=== PATIENT | male | born 1960 | race Caucasian/White ===

== ENCOUNTER 2019-08-26 17:32 | Inpatient (IN) | payer MEDICAID, SELFPAY ==
--- NOTE | ~2019-08-26 | US_ITS ---
EXAMINATION: US renal BI EXAM DATE: 08/28/2019 10:06 INDICATION: Acute renal failure. TECHNIQUE: Multiple grayscale and Doppler images of the kidneys were obtained (by a technologist who performed the scan) and subsequently reviewed. Comparison is made to prior examination from 4. FINDINGS: Right kidney: There is normal contour and echogenicity. It measures 11.0 x 5.5 x 5.7 centimeters. T here are no focal renal lesions identified. There is no hydronephrosis. Left kidney: There is normal contour and echogenicity. It measures 11.4 x 6.4 x 5.9 centimeters. Th ere are no focal renal lesions identified. There is no hydronephrosis. Bladder unremarkable. IMPRESSION: 1. Sonographically unremarkable kidneys. Reviewed, dictated and finalized at location B. GER OF APPLICATION DEVELOPMENT
--- NOTE | ~2019-08-26 | XR_ITS ---
EXAMINATION: XR abdomen NG/feed tube insert DATE: 08/28/2019 14:12 INDICATION: Nasogastric tube placement. TECHNIQUE: An upright view of the abdomen was obtained. COMPARISON: CT abdomen and pelvis 08/28/2019 FINDINGS: The lower abdomen is excluded. The nasogastric tube tip is in the stomach with proximal aisha e port in the distal esophagus. IMPRESSION: 1. Nasogastric tube tip in the stomach with proximal side port in the distal esophagus. Advancement 3 cm is recommended. Reviewed, dictated and finalized at location A. ENTIVE MEDICINE SPECIALIST IMPRESSION: 1. Nasogastric tube tip in the stomach with proximal side port in the distal es ophagus. Advancement 3 cm is recommended.
--- NOTE | ~2019-08-26 | XR_ITS ---
EXAMINATION: XR abdomen NG/feed tube rechec DATE: 08/30/2019 09:52 INDICATION: Nasogastric tube placement. TECHNIQUE: An upright view of the abdomen was obtained. COMPARISON: CT abdomen and pelvis 08/28/2019 FINDINGS: The lower abdomen is excluded. There are no dilated loops of bowel. The nasogastric tube ti p is in the stomach with proximal side port in the distal esophagus. IMPRESSION: 1. Nasogastric tube tip in the stomach with proximal side port in the distal esophagus. Advancement 8 cm is recommended. Reviewed, dictated and finalized at location A. N DIR IMPRESSION: 1. Nasogastric tube tip in the stomach with proximal side port in the distal es ophagus. Advancement 8 cm is recommended.
--- NOTE | ~2019-08-26 | XR_ITS ---
EXAMINATION: XR abdomen NG/feed tube rechec DATE: 08/30/2019 10:42 INDICATION: Nasogastric tube placement. TECHNIQUE: An upright view of the abdomen was obtained. COMPARISON: Abdomen radiograph at 9:47 AM FINDINGS: There are no dilated loops of bowel. The nasogastric tube tip is in the stomach. IMPRESSION: 1. Nasogastric tube tip in the stomach. Reviewed, dictated and finalized at location A. ATING ROOM AIDE
--- NOTE | ~2019-08-26 | XR_ITS ---
EXAMINATION: XR chest 1V portable INDICATION: Hypotension TECHNIQUE: Portable AP chest at 1825 hours COMPARISON: 04/22/2014 FINDINGS: The lungs are free of acute opacities. There is no pleural effusion or pneumothorax. Stable cardiomegaly is noted. IMPRESSION: 1. No acute cardiopulmonary abnormality. 2. Stable cardiomegaly. Reviewed, dictated and finalized at location A. OUNDING AND FINISHING SUPERVISOR
--- NOTE | ~2019-08-26 | CT_ITS ---
EXAMINATION: CT abdomen pelvis wo con DATE: 08/28/2019 10:05 INDICATION: Nausea and vomiting TECHNIQUE: Computed tomography (CT) of the abdomen and pelvis was performed without intravenous contr ast. Automated exposure control and iterative reconstruction technique were employed. The dose-length product was 1184.22 mGy-cm. COMPARISON: MRI dated 04/29/2014 FINDINGS: Lung bases are clear. Heart size is normal. No pericardial or pleural effusion. Diffuse hepatic steat osis. The gallbladder, spleen, right adrenal gland and kidney are normal. There is wall thickening at the distal esophagus with mild segment distal paraesophageal stranding. B owel obstruction at the level of the ligament of Treitz with dilated fluid-filled stomach and duodenu m, the latter measuring up to 8.2 cm in diameter. Both the small bowel at the site of obstruction in the tail of the pancreas are contiguous with the intervening spiculated mass which measures approxima tely 5.4 x 5.0 x 5.2 cm which is concerning for malignancy. Within the mass there is a small tubular fluid attenuation extending to a more focal 2.4 cm cystic lesion at the cephalad aspect of the spicul ated mass potentially representing a dilated duct and sidebranch or chronic pseudocyst. The mass also extends to contact the left adrenal gland and anterior interpolar region of the left kidney. 12 mm c yst at the lower pole of the left kidney. There is mild left perinephric stranding. Mildly prominent 12 x 9 mm left gastric lymph node which co uld be reactive or metastatic. No other pathologically enlarged abdominal or pelvic lymphadenopathy. The more distal small bowel is normal. There are couple colonic diverticula without adjacent inflamma tory change to suggest diverticulitis. Appendix is normal. Bladder and prostate are normal. No free i ntraperitoneal gas or fluid. Amount of fluid/stranding within a moderate-sized fat-containing umbilic al hernia. Moderate lower lumbar spondylosis. Likely physiologic mild anterior wedging at T10-L1. IMPRESSION: 1. 5.4 x 5.0 x 5.2 cm spiculated mass at the tail of the pancreas with differential including pancrea tic cancer, inflammatory pseudomass related to prior pancreatitis or combination thereof. This result s in a high-grade obstruction of the duodenum at the level of the ligament of Treitz. 2. Distal esophageal wall thickening with surrounding inflammatory stranding suggesting reflux esopha gitis. 3. Mildly prominent 12 x 9 mm left gastric lymph node which could be reactive or metastatic. 4. Moderate-sized fat-containing umbilical hernia. Reviewed, dictated and finalized at location A. STITCH TUNNEL ELASTIC OPERATOR IMPRESSION: 1. 5.4 x 5.0 x 5.2 cm spiculated mass at the tail of the pancreas with differen tial including pancreatic cancer, inflammatory pseudomass related to prior panc reatitis or combination thereof. This results in a high-grade obstruction of th e duodenum at the level of the ligament of Treitz. 2. Distal esophageal wall thickening with surrounding inflammatory stranding davis ggesting reflux esophagitis. 3. Mildly prominent 12 x 9 mm left gastric lymph node which could be reactive o r metastatic. 4. Moderate-sized fat-containing umbilical hernia.
[2019-08-26 17:40] VITALS: BP 81/56; PULSE 84; RESP 12; TEMP 36.8; O2SAT 97
--- NOTE | 2019-08-26 17:54 | ED.GENADULT ---
HPI - General Adult General Chief complaint: Nausea/Vomiting/Diarrhea Stated complaint: low bp Time Seen by Provider: 08/26/19 17:54 Source: patient and family Mode of arrival: ambulatory Limitations: no limitations History of Present Illness HPI narrative: A 58 y/o male pt presents to the ED, with c/o low BP and N/V x 4 days. Per spouse at bedside, pt's Sx began with N/V/D, estimating 4 episodes of emesis a day, but the diarrhea has subsided. Pt states that he is not able to keep food down, and notes generalized weakness, chills, body aches, acid reflux and dizziness. He denies having a fever, ABD pain, cough, or rhinorrhea. He notes that he has a Hx of HTN that he is on medication for, but he discontinued his medication x 2 days ago when he noticed his blood pressure dropping. Pt denies being around anyone with similar Sx. He denies a PMHx of DM, HLD, OK, TIA or any thyroid problems. Pt also denies taking any anticoagulation therapy. Pt's BP in the ED bed is 86/58. MD complaint: N/V Onset (ago): day(s) (4) Exacerbating factors: eating Associated symptoms: nausea/vomiting, weakness (generalized) and other (chills, body aches, dizziness, acid reflux, unable to keep down food) Related Data Home Medications Medication Instructions Recorded Confirmed albuterol sulfate 90 mcg/actuation 2 inhalation INHALATION Q4-6H PRN 06/07/19 breath activated powder inhaler amlodipine 10 mg tablet 10 mg PO DAILY 06/07/19 aspirin 81 mg tablet,delayed 81 mg PO DAILY 06/07/19 release atorvastatin 40 mg tablet 40 mg PO DAILY 06/07/19 carvedilol 25 mg tablet 25 mg PO Q12H 06/07/19 fluticasone 100 mcg-salmeterol 50 1 puff INHALATION Q12H 06/07/19 mcg/dose blistr powdr for inhalation furosemide 20 mg tablet 20 mg PO QAM 06/07/19 lisinopril 40 mg tablet 40 mg PO DAILY 06/07/19 Allergies Allergy/AdvReac Type Severity Reaction Status Date / Time iodine Allergy Unknown Unknown Verified 08/26/19 16:14 prednisone AdvReac Mild Nausea and Verified 08/26/19 16:14 Vomiting Review of Systems Review of Systems: All systems reviewed & are unremarkable except as noted in HPI and below Constitutional: Constitutional: Reports body ache(s), Reports chills, Denies fever(s) and Reports weakness (generalized) Respiratory: Respiratory: Denies cough and Denies other (rhinorrhea) Gastrointestinal: Gastrointestinal: Denies abdominal pain, Reports diarrhea (subsided), Reports nausea, Reports vomiting and Reports other (acid reflux, unable to keep food down) Neurologic: Reports dizziness PMFSH Social History Social History Smoking status: Light tobacco smoker Tobacco type: cigarettes Second hand tobacco smoke exposure: Yes Alcohol intake: current Substance use: never Substance use type: does not use Exam Narrative: Exam Narrative: General appearance: Well-developed, well-nourished Skin: Normal color Head: Normocephalic, nontraumatic Eyes: Clear conjunctiva ENT: Oropharynx normal, ears normal, nose normal Neck: Supple, nontender Chest and respiratory: Airway patent, no respiratory distress, no accessory muscle use Heart: Regular rate/rhythm Abdomen: Soft, nontender, no organomegaly, quiet bowel sounds Vascular: Normal peripheral pulses, normal capillary refill. Musculoskeletal: Normal range of motion, nontender back Neurologic: Alert and oriented ?3, SUGAR DRIER is normal as tested, no gross motor deficit Course Course Emergency Course: Improving Consultations Consultation #1: Discussed case with Dr. Santana, trail maintenance worker. Agrees to consult. Date: 08/26/19 Time: 19:05 Consultation #2: Discussed shreya
[2019-08-26] MEDS: SODIUM CHLORIDE 0.9% IV 1,000 ML 999 ML IV CONT (18:00)
[2019-08-26] MEDS: SODIUM CHLORIDE 0.9% IV 1,000 ML 999 ML (18:00)
--- NOTE | 2019-08-26 18:01 | ECG_ITS ---
Measurements Intervals [place] Rate: 70 P: -20 SD: 182 QRS: 32 QRSD: 104 T: -78 QT: 413 QTc: 449 Interpretive Statements SINUS RHYTHM ATRIAL PREMATURE COMPLEX CANNOT RULE OUT SEPTAL INFARCT, AGE INDETERMINATE BORDERLINE ST-T WAVE ABNORMALITY- DIFFUSE LEADS BASELINE ARTIFACT- I, AVR, AVL ABNORMAL ECG Electronically Signed On 08-26-2019 19:45:06 HOME HEALTH ATTENDANT by Kenji Rahman D.O.
[2019-08-26 18:24] VITALS: BP 96/51; PULSE 85; RESP 14; O2SAT 100
[2019-08-26 18:31] LABS: Basophils Absolute Auto 0.1 K/mm3 (0.0-0.1); Basophils Percent Auto 0.6 % (0.2-1.2); Eosinophils Absolute Auto 0.2 K/mm3 (0-0.3); Eosinophils Percent Auto 1.6 % (0-4.4); Hematocrit 48.9 % (42.0-52.0); Hemoglobin 16.9 g/dL (14.0-18.0); Immature Granulocyte Absolute 0.08 K/mm3 (0.00-0.031); Immature Granulocyte Percent A 0.6 % (0-0.5); Lymphocytes Absolute Auto 3.94 K/mm3 (0.9-3.2); Lymphocytes Percent Auto 27.4 % (18.3-44.2); Mean Corpuscular HGB Conc 34.6 g/dl (32-36); Mean Corpuscular Hemoglobin 31.7 pg (26-34); Mean Corpuscular Volume 91.7 fl (80-100); Monocytes Absolute Auto 1.6 K/mm3 (0.1-0.6); Monocytes Percent Auto 11.1 % (2.6-8.5); Neutrophils Absolute Auto 8.5 K/mm3 (1.3-6.7); Neutrophils Percent Auto 58.7 % (45.5-73.1); Platelet Count Result 235 k/mm3 (150-375); Red Blood Count 5.33 M/mm3 (4.6-6.20); White Blood Count 14.4 K/mm3 (4.5-10.0)
[2019-08-26 18:44] LABS: Lactic Acid Reflex 1.9 mmol/L (0.7-2.1)
[2019-08-26 18:46] LABS: Alanine Aminotransferase 69 U/L (4-50); Albumin Level 5.1 g/dL (3.5-5.1); Alkaline Phosphatase 155 U/L (38-126); Aspartate Amino Transferase 45 U/L (17-59); Bilirubin,Total 1.3 mg/dL (0.2-1.3); Blood Urea Nitrogen 82 mg/dL (9-20); CRP 0.8 mg/dL (<1.0); Calcium 9.6 mg/dL (8.4-10.2); Carbon Dioxide 32 mmol/L (22-30); Chloride 71 mmol/L (98-107); Estimated CRCL calculation 9 ml/min; Estimated Glomerular Filt Rate 5; Glucose 115 mg/dL (75-110); Potassium 4.5 mmol/L (3.4-5.0); Sodium 130 mmol/L (137-145)
[2019-08-26 18:51] VITALS: BP 116/80; PULSE 77; RESP 16; O2SAT 98
[2019-08-26 19:12] LABS: Add Urine Microscopic? YES; Appearance Urine Cloudy (Clear); Bacteria Urine Trace /hpf; Bilirubin Urine 1+ (Negative); Blood Urine Negative (Negative); Color Urine Amber (Yellow); Glucose Urine UA Negative (Negative); Hyaline Casts Urine 50+ /lpf; Ketones Urine Trace mg/dL (Negative); Leukocyte Esterase Ur Trace LEU/UL (Negative); Mucus Urine Heavy /lpf; Nitrate Urine Negative (Negative); Protein Urine 2+ mg/dL (Negative); Squamous Epithelial Cell Urine Many /hpf (Few); WBC Clumps Urine Present /HPF
[2019-08-26 19:28] LABS: Prothrombin Time 12.7 Seconds (11.1-14.7)
[2019-08-26 19:29] LABS: Partial Thromboplastin Time 27.1 SECONDS (22.3-36.8)
[2019-08-26 19:45] VITALS: BP 111/55; PULSE 90; RESP 11; O2SAT 98
[2019-08-26] MEDS: ONDANSETRON INJ 4 MG/2 ML VIAL IV PUSH (20:16)
[2019-08-26 20:18] VITALS: BP 92/65; PULSE 93; RESP 16; O2SAT 96
[2019-08-26 20:40] VITALS: BP 95/48; PULSE 93; RESP 20; TEMP 36.7; O2SAT 95; BMI 33.1
[2019-08-26] MEDS: LACTATED RINGERS 1,000 ML 150 ML IV CONT (20:46)
--- NOTE | 2019-08-26 20:57 | ADMGEN ---
This patient, Kevin Mccarty, was admitted to Medical Room 241-. Patient/family oriented to hospital policies and general routines including ID bracelet, bed and alarms, visiting hours, pain management, procedures, bathroom and other care routines, personal items, smoking policy, room service/diet, and visiting hours. Valuables list has been completed. Information on how to activate the Rapid Response Team has been discussed. Patient/Family are encouraged to report perceived risks to care and to ask questions if they do not understand what they are told or what they should do.
[2019-08-27] VITALS (8 sets, daily range): BP systolic 78–141; BP diastolic 41–77; PULSE 61–97; RESP 16–22; TEMP 36.1–37.4; O2SAT 91–97; BMI 33.1
--- NOTE | 2019-08-27 01:09 | PM.IMHP ---
H&P: HPI History of Present Illness Chief complaint: CHERELLE,HYPOVOLEMIC,HYPOTENSION,HYPONATREMIA,VOMITING Narrative: Kevin Mccarty is a 58 year old male admitted with nausea, vomiting and diarrhea for 4 days. Pt bp is low in the ED. Pt feels he has a stomach bug or GERD symptoms and went to his PCP who adviced him to come to ED. Pt has a history of CHF, denies, renal problems. Sees cardiology and his PCP. Pt held his BP medications himself as his BP was low. Pts creat is high 10.4. potassium is NL. Estimated GFR is 5. Nephrology consult awaiting. Ua positive for WCC, protein, hyaline casts. Pt is receiving IV hydration presently. Review of Systems Review of Systems: All systems reviewed & are unremarkable except as noted in HPI and below Constitutional: Constitutional: Reports as per HPI Cardiovascular: Cardiovascular: Denies no additional cardiovascular complaints Respiratory: Respiratory: Denies no additional respiratory complaints Gastrointestinal: Gastrointestinal: Reports dyspepsia, Reports diarrhea and Reports vomiting Comments: Nauseated, diarrhea Genitourinary: Comments: Poor urine output Musculoskeletal: Musculoskeletal: Reports no additional musculoskeletal complaints Neurologic: Reports system reviewed and no additional complaints, except as documented Psychiatric: Psychiatric: Reports no additional psychiatric complaints [facility] Past Medical History Medical History (Updated 08/27/19 @ 05:55 by Shonda Jones MD) CAD in [place] artery Chronic congestive heart failure Dyslipidemia Environmental allergies Idiopathic gout Mild intermittent asthma without complication JUAN (obstructive sleep apnea) Pre-diabetes Umbilical hernia without mention of obstruction or gangrene Surgical History Surgical History No pertinent past surgical history Family History Family History Father Hypertension Grandparent Parkinson disease Grandparent Alzheimer disease Social History Social History Smoking packs per day: 1 Smoking cigarettes per day: 20.0 Years smoked: 30 Smoking pack-years: 30.00 Smoking status: Current every day smoker Tobacco type: cigarettes Second hand tobacco smoke exposure: Yes Alcohol intake: current Drinks per week: 14 Substance use: never Substance use type: does not use Spiritual care concerns: No Agree to blood products: Yes Meds Home Medications and Allergies Home Medications Medication Instructions Recorded Confirmed Type albuterol sulfate 90 mcg/actuation 2 inhalation INHALATION Q4-6H PRN 06/07/19 08/26/19 History breath activated powder inhaler aspirin 81 mg tablet,delayed 81 mg PO DAILY 06/07/19 08/26/19 History release carvedilol 25 mg tablet 25 mg PO Q12H 06/07/19 08/26/19 History fluticasone 100 mcg-salmeterol 50 1 puff INHALATION Q12H 06/07/19 08/26/19 History mcg/dose blistr powdr for inhalation furosemide 20 mg tablet 20 mg PO QAM 06/07/19 08/26/19 History lisinopril 40 mg tablet 40 mg PO DAILY 06/07/19 08/26/19 History allopurinol 300 mg tablet 300 mg PO DAILY #90 tablet 08/12/19 08/26/19 Rx Allergies Allergy/AdvReac Type Severity Reaction Status Date / Time iodine Allergy Unknown Unknown Verified 08/26/19 16:14 prednisone AdvReac Mild Nausea and Verified 08/26/19 16:14 Vomiting Vital Signs Vital Signs - 24 hr 08/26/19 17:40 08/26/19 18:24 08/26/19 18:51 Temperature 36.8 C Pulse Rate 84 85 77 Respiratory Rate 12 14 16 Blood Pressure 81/56 L 96/51 L 116/80 Pulse Oximetry 97 100 98 08/26/19 19:45 08/26/19 20:18 08/26/19 20:40 Temperature 36.7 C Pulse Rate 90 93 93 Respiratory Rate 11 L 16 20 Blood Pressure 111/55 L 92/65 L 95/48 L Pulse Oximetry 98 96 95 Exam Const: General: tired appearing HENMT: Other: dry muco
[2019-08-27] MEDS: SODIUM CHLORIDE 0.9% IV 500 ML 999 ML IV CONT (02:52)
[2019-08-27] MEDS: LACTATED RINGERS 1,000 ML 150 ML IV CONT ×3 (02:53→16:37)
[2019-08-27 06:26] LABS: Blood Urea Nitrogen 83 mg/dL (9-20); Calcium 8.2 mg/dL (8.4-10.2); Carbon Dioxide 29 mmol/L (22-30); Chloride 79 mmol/L (98-107); Estimated CRCL calculation 11 ml/min; Estimated Glomerular Filt Rate 6; Glucose 89 mg/dL (75-110); Sodium 131 mmol/L (137-145)
[2019-08-27 06:36] LABS: Creatine Kinase 210 U/L (55-170)
[2019-08-27] MEDS: ASPIRIN 81 MG ENTERIC TABLET PO (08:30)
[2019-08-27 09:10] LABS: Creatine Kinase 206 U/L (55-170)
[2019-08-27 09:11] LABS: Uric Acid 10.8 mg/dL (3.5-8.5)
[2019-08-27] MEDS: CALCIUM CARBONATE (TUMS) 500 MG (200 MG ELEMENTAL) PO (11:14)
[2019-08-27 15:08] LABS: Hematocrit 37.7 % (42.0-52.0); Hemoglobin 13.3 g/dL (14.0-18.0); Mean Corpuscular HGB Conc 35.3 g/dl (32-36); Mean Corpuscular Hemoglobin 32.2 pg (26-34); Mean Corpuscular Volume 91.3 fl (80-100); Mean Platelet Volume 11.4 fl (7.4-10.4); Platelet Count Result 144 k/mm3 (150-375); Red Blood Count 4.13 M/mm3 (4.6-6.20); Red Cell Distribution Width 12.8 % (11.5-14.5); White Blood Count 8.6 K/mm3 (4.5-10.0)
[2019-08-27 15:15] LABS: Blood Urea Nitrogen 82 mg/dL (9-20); Calcium 8.5 mg/dL (8.4-10.2); Carbon Dioxide 32 mmol/L (22-30); Chloride 83 mmol/L (98-107); Estimated CRCL calculation 16 ml/min; Estimated Glomerular Filt Rate 9; Glucose 104 mg/dL (75-110); Sodium 132 mmol/L (137-145)
--- NOTE | 2019-08-27 15:18 | PM.CNNEP ---
Assessment and Plan Assessment and plan (1) CHERELLE (acute kidney injury): Code(s): N17.9 - Acute kidney failure, unspecified Status: Acute (2) Nausea & vomiting: Code(s): R11.2 - Nausea with vomiting, unspecified Status: Acute (3) Hypotension: Code(s): I95.9 - Hypotension, unspecified Status: Acute (4) Chronic congestive heart failure: Code(s): I50.9 - Heart failure, unspecified Status: Acute (5) Dyslipidemia: Code(s): E78.5 - Hyperlipidemia, unspecified Status: Chronic (6) JUAN (obstructive sleep apnea): Code(s): G47.33 - Obstructive sleep apnea (adult) (pediatric) Status: Chronic Assessment and Plan: . Additional Plan suspect etiology of CHERELLE is multifactorial ATN: - severe volume depletion -- nausea, vomiting, and poor oral intake -- as evidenced by high H/H and albumin on admission (hemoconcentration) -- possible UTI? - hypotension and associated renal hypoperfusion - concurrent use of DK-I and diuretics (lisinopril and furosemide) improvement noted with IVF resuscitation and better BP follow-up on renal ultrasound Check urine electrolytes and urin eosinophils hold lasix and lisinopirl for now follow trend of repeat labs and urine output given hx of CHF, follow volume status closely I will continue follow patient with you while he remains hospitalized to make further recommendations during his hospital course. Thank you for allowing me to participate in the care this patient. History of Present Illness Reason for Consult Consult date: 08/27/19 Reason for consult: acute renal failure Chief Complaint Chief complaint: CHERELLE,HYPOVOLEMIC,HYPOTENSION,HYPONATREMIA,VOMITING History of Present Illness Narrative: The patient is a 58-year-old [place] male with a past medical history as outlined below who presented to [facility] ER with complaints of persistent nausea and vomiting. The patient initially went to see his PCP for these symptoms but the severity of the symptoms, he was transferred ot the ER for further evaluation. Upon further questions, he related the GI symptoms y of them have been present for the last 4 days if not longer. He relates ~ 4 - 5 times a day of nausea/vomiting with an inability to keep any oral intake down. No reported abdominal pain or diarrhea. No fevers or chills either. Workup and evaluation emergency room demonstrated routine blood test with severe and significant decline in his renal function and hypotension. Given the severe acute renal failure/acute kidney injury, he was started on aggressive IV fluids with appropriate cultures obtained (give the concern for possible spesis) with resulting admission to the hospital for further evaluation/testing. Since his admission, he has been receiving aggressive IV fluid resuscitation with his urine output being better and his BUN and creatinine are decreased/down significantly. Surprisingly, given the severity of his renal dysfunction on admission, he has no issues or problems with regard to hyperkalemia, metablic acidoss, or uremia. Renal consultation was requested due to his acute kidney injury/acute renal failure. From review of the patient's records, he does have risk factors for kidney disease in the form of heart failure, gout, vascular disease, hyperlipidemia. It would seem the he does have some trace renal insufficiency with baseline creatinine 1.5 mg/dL presumably from his history of CHF, hypertension, and vascular disease He denies any history with regard to nephrolithiasis, recurrent urinary tract infections, or any other autoimmune disorders. Currently, the time my visit, he appears to be in no acute distress at this time. Review of Systems Review of Systems: Narrative: As per HPI. [facility] Past Medical History Medical History (Updated 08/28/19 @ 01:59 by Miguelito Santana MD) CAD in [place] artery Chronic
--- NOTE | 2019-08-27 15:33 | PC.NURSE ---
On 08/27/19, the student, Sunny Espinoza, provided care and completed [facility] documentation on this patient. I have reviewed the student's documentation and agree with the findings.
[2019-08-27 16:07] LABS: Creatinine Urine 137.2 mg/dL; Total Protein Urine Random 28 mg/dL
[2019-08-27 16:10] LABS: Sodium Urine Random 48 meq/L
--- NOTE | 2019-08-27 19:05 | P.PNIM_ITS ---
Progress Note: A&P Assessment and Plan (1) Vomiting: Qualifiers: Nausea presence: with nausea Vomiting Intractability: non-intractable Vomiting type: unspecified Qualified Code(s): R11.2 - Nausea with vomiting, unspecified Code(s): R11.10 - Vomiting, unspecified Status: Acute Assessment and Plan: N/V continued today. He was able to tolerate breakfast CLD, but unable to tolerate lunch. Symptoms likely secondary to gastroenteritis causing CHERELLE * Will order CT of abd/pelvis wo contrast to rule out other etiologies such as ileus vs obstruction vs complications from hernia. * Will start on IV pantoprazole Qam for possible added reflux relief possibly contributing to symptoms * Consider GI consult tomorrow if still not improving. (2) CHERELLE (acute kidney injury): Code(s): N17.9 - Acute kidney failure, unspecified Status: Acute Assessment and Plan: This appears to be resolving on labs today with Cr 6.30 today. * Continue iv fluids at 100cc per hour watch for volume overload pt has a history of CHF. * continue to watch UO * renal US ordered, * Nephrology consulted and appreciate input. * Hold lisinopril, * Monitor labs (3) Acute hyponatremia: Code(s): E87.1 - Hypo-osmolality and hyponatremia Status: Acute Assessment and Plan: Improving at 132 today * Monitor sodium levels, * continue iv hydration (4) Hypotension due to hypovolemia: Code(s): I95.89 - Other hypotension; E86.1 - Hypovolemia Status: Acute Assessment and Plan: BP improving this afternoon/evening * Consider resuming bp medications * continue iv hydration (5) Chronic congestive heart failure: Code(s): I50.9 - Heart failure, unspecified Status: Acute Assessment and Plan: Appears to be compensated * hold lasix and lisinopril for now * Monitor fluid status (6) Pre-diabetes: Code(s): R73.03 - Prediabetes Status: Acute Assessment and Plan: Monitor daily glucose levels (7) Dyslipidemia: Code(s): E78.5 - Hyperlipidemia, unspecified Status: Chronic Assessment and Plan: Pt not on any statins * Will likely need PCP f/u (8) JUAN (obstructive sleep apnea): Code(s): G47.33 - Obstructive sleep apnea (adult) (pediatric) Status: Chronic Assessment and Plan: * Continue CPAP (9) Alcohol use: Code(s): Z72.89 - Other problems related to lifestyle Status: Acute Assessment and Plan: Pt drinks alcholol daily watch for any DTs. No acute issues at this moment or evidence of withdrawal. ALT and ALK phos are high, AST is NL. Alb Nl, total protein high * Monitor for signs of withdrawal * Consider CIWA protocol (10) Leucocytosis: Code(s): D72.829 - Elevated white blood cell count, unspecified Status: Acute Assessment and Plan: Possible related to stress as this has improved. Lactaic acid is NL. * continue to monitor WBC * await BC and UC, lactate is NL. Subjective Date/time seen: 08/27/19 19:05 Interval history: Patient is a 58 yo M with history of CAD, CHF, JUAN, pre- diabeties, umb
--- NOTE | 2019-08-27 19:05 | PM.IMPN ---
Progress Note: A&P Assessment and Plan (1) Vomiting: Qualifiers: Nausea presence: with nausea Vomiting Intractability: non-intractable Vomiting type: unspecified Qualified Code(s): R11.2 - Nausea with vomiting, unspecified Code(s): R11.10 - Vomiting, unspecified Status: Acute Assessment and Plan: N/V continued today. He was able to tolerate breakfast CLD, but unable to tolerate lunch. Symptoms likely secondary to gastroenteritis causing CHERELLE Will order CT of abd/pelvis wo contrast to rule out other etiologies such as ileus vs obstruction vs complications from hernia. Will start on IV pantoprazole Qam for possible added reflux relief possibly contributing to symptoms Consider GI consult tomorrow if still not improving. (2) CHERELLE (acute kidney injury): Code(s): N17.9 - Acute kidney failure, unspecified Status: Acute Assessment and Plan: This appears to be resolving on labs today with Cr 6.30 today. Continue iv fluids at 100cc per hour watch for volume overload pt has a history of CHF. continue to watch UO renal US ordered, Nephrology consulted and appreciate input. Hold lisinopril, Monitor labs (3) Acute hyponatremia: Code(s): E87.1 - Hypo-osmolality and hyponatremia Status: Acute Assessment and Plan: Improving at 132 today Monitor sodium levels, continue iv hydration (4) Hypotension due to hypovolemia: Code(s): I95.89 - Other hypotension; E86.1 - Hypovolemia Status: Acute Assessment and Plan: BP improving this afternoon/evening Consider resuming bp medications continue iv hydration (5) Chronic congestive heart failure: Code(s): I50.9 - Heart failure, unspecified Status: Acute Assessment and Plan: Appears to be compensated hold lasix and lisinopril for now Monitor fluid status (6) Pre-diabetes: Code(s): R73.03 - Prediabetes Status: Acute Assessment and Plan: Monitor daily glucose levels (7) Dyslipidemia: Code(s): E78.5 - Hyperlipidemia, unspecified Status: Chronic Assessment and Plan: Pt not on any statins Will likely need PCP f/u (8) JUAN (obstructive sleep apnea): Code(s): G47.33 - Obstructive sleep apnea (adult) (pediatric) Status: Chronic Assessment and Plan: Continue CPAP (9) Alcohol use: Code(s): Z72.89 - Other problems related to lifestyle Status: Acute Assessment and Plan: Pt drinks alcholol daily watch for any DTs. No acute issues at this moment or evidence of withdrawal. ALT and ALK phos are high, AST is NL. Alb Nl, total protein high Monitor for signs of withdrawal Consider CIWA protocol (10) Leucocytosis: Code(s): D72.829 - Elevated white blood cell count, unspecified Status: Acute Assessment and Plan: Possible related to stress as this has improved. Lactaic acid is NL. continue to monitor WBC await BC and UC, lactate is NL. Subjective Date/time seen: 08/27/19 19:05 Interval history: Patient is a 58 yo M with history of CAD, CHF, JUAN, pre-diabeties, umbilical hernia who is here for nausea and vomiting. Patient states he feels better today, and was able to tolerate his breakfast CLD but for lunch, he vomited several times; non-bloody, no coffee ground emesis. He states he feels like this is really bad acid reflux and he can feel it burning in his chest. Otherwise he feels okay without many other complaints. He has noted some constipation lately, but admits to not drinking as much fluids as he shou
[2019-08-27] MEDS: ONDANSETRON INJ 4 MG/2 ML VIAL IV PUSH (19:58)
[2019-08-27] MEDS: SODIUM CHLORIDE 0.9% IV 1,000 ML 100 ML IV CONT (22:34)
[2019-08-28] VITALS: BP 118/62; PULSE 86; RESP 20; TEMP 36.2; O2SAT 95
[2019-08-28 04:00] VITALS: BP 120/69; PULSE 90; RESP 22; TEMP 36.6; O2SAT 95
[2019-08-28] MEDS: ONDANSETRON INJ 4 MG/2 ML VIAL IV PUSH ×2 (04:26→08:55)
[2019-08-28 06:07] LABS: Hemoglobin 14.1 g/dL (14.0-18.0); Mean Corpuscular HGB Conc 34.4 g/dl (32-36); Mean Corpuscular Hemoglobin 31.8 pg (26-34); Mean Corpuscular Volume 92.3 fl (80-100); Mean Platelet Volume 11.9 fl (7.4-10.4); Platelet Count Result 142 k/mm3 (150-375); Red Blood Count 4.44 M/mm3 (4.6-6.20); Red Cell Distribution Width 12.5 % (11.5-14.5); White Blood Count 8.5 K/mm3 (4.5-10.0)
[2019-08-28 06:16] LABS: Alanine Aminotransferase 58 U/L (4-50); Albumin Level 4.1 g/dL (3.5-5.1); Alkaline Phosphatase 118 U/L (38-126); Aspartate Amino Transferase 39 U/L (17-59); Bilirubin,Total 0.8 mg/dL (0.2-1.3); Blood Urea Nitrogen 74 mg/dL (9-20); Calcium 9.1 mg/dL (8.4-10.2); Carbon Dioxide 33 mmol/L (22-30); Chloride 85 mmol/L (98-107); Creatine Kinase 113 U/L (55-170); Estimated CRCL calculation 30 ml/min; Estimated Glomerular Filt Rate 19; Glucose 100 mg/dL (75-110); Magnesium 2.3 mg/dL (1.6-2.3); Potassium 3.9 mmol/L (3.4-5.0); Sodium 136 mmol/L (137-145)
[2019-08-28 08:00] VITALS: BP 105/51; PULSE 84; RESP 18; TEMP 37.1; O2SAT 94
[2019-08-28] MEDS: SODIUM CHLORIDE 0.9% IV 1,000 ML 100 ML IV CONT ×2 (08:48→18:28)
[2019-08-28] MEDS: ASPIRIN 81 MG ENTERIC TABLET PO (08:49)
[2019-08-28] MEDS: PANTOPRAZOLE SODIUM IV 40 MG VIAL IV PUSH (08:50)
--- NOTE | 2019-08-28 11:10 | PM.IMPN ---
Progress Note: A&P Assessment and Plan (1) Pancreatic mass: Code(s): K86.89 - Other specified diseases of pancreas Status: Acute Assessment and Plan: Found on CT imaging today. Results read as:5.4 x 5.0 x 5.2 cm spiculated mass at the tail of the pancreas with differential including pancreatic cancer, inflammatory pseudomass related to prior pancreatitis or combination thereof. This results in a high-grade obstruction of the duodenum at the level of the ligament of Treitz. Discussed in detail with patient and and they would like to proceed with General Surgery Consult. Likely causing vomiting. Will consult General Surgery for further input. Greatly appreciate recommendations Will place patient on NPO diet fro now (2) SBO (small bowel obstruction): Code(s): K56.609 - Unspecified intestinal obstruction, unspecified as to partial versus complete obstruction Status: Acute Assessment and Plan: Suggestive SBO found on CT imaging today related to pancreatic mass. Please see above a/p. Likey cause of vomiting. (3) Vomiting: Qualifiers: Nausea presence: with nausea Vomiting Intractability: non-intractable Vomiting type: unspecified Qualified Code(s): R11.2 - Nausea with vomiting, unspecified Code(s): R11.10 - Vomiting, unspecified Status: Acute Assessment and Plan: Vomiting continued yesterday, but patient states he feels better today. Symptoms likely secondary to obstruction from pancreatic mass which in turn, caused hypovolemia and CHERELLE Pleas see above a/p Continue IV pantoprazole Qam for possible added reflux esophagitis seen on CT imaging. (4) CHERELLE (acute kidney injury): Code(s): N17.9 - Acute kidney failure, unspecified Status: Acute Assessment and Plan: This appears to be resolving on labs today with Cr 3.30 today. Renal US unremarkable Continue iv fluids at 100cc per hour watch for volume overload pt has a history of CHF. continue to watch UO Nephrology consulted and appreciate input. Hold lisinopril, Monitor labs (5) Acute hyponatremia: Code(s): E87.1 - Hypo-osmolality and hyponatremia Status: Acute Assessment and Plan: Improving at 136 today Monitor sodium levels, continue iv hydration (6) Hypotension due to hypovolemia: Code(s): I95.89 - Other hypotension; E86.1 - Hypovolemia Status: Acute Assessment and Plan: BP soft this morning Consider resuming bp medications continue iv hydration (7) Chronic congestive heart failure: Code(s): I50.9 - Heart failure, unspecified Status: Acute Assessment and Plan: Appears to be compensated hold lasix and lisinopril for now Monitor fluid status (8) Pre-diabetes: Code(s): R73.03 - Prediabetes Status: Acute Assessment and Plan: Monitor daily glucose levels. BGL 100 today (9) Dyslipidemia: Code(s): E78.5 - Hyperlipidemia, unspecified Status: Chronic Assessment and Plan: Pt not on any statins Will likely need PCP f/u (10) JUAN (obstructive sleep apnea): Code(s): G47.33 - Obstructive sleep apnea (adult) (pediatric) Status: Chronic Assessment and Plan: Continue CPAP (11) Alcohol use: Code(s): Z72.89 - Other problems related to lifestyle Status: Acute Assessment and Plan: Pt drinks alcholol daily. No acute issues at this moment or evidence of withdrawal. Monitor for signs of withdrawal Consider CIWA protocol (12) Leucocytosis:
[2019-08-28 14:00] VITALS: BP 130/75; PULSE 89; RESP 18; TEMP 36.7; O2SAT 93
[2019-08-28] MEDS: PHENOL/SOD PHENO SPRAY CHERRY (*BKC) 1 SPRAY MUCOUS MEM (18:24)
--- NOTE | 2019-08-28 18:55 | PM.PNNEP ---
Progress Note: A&P Assessment and Plan (1) CHERELLE (acute kidney injury): Code(s): N17.9 - Acute kidney failure, unspecified Status: Acute Assessment and Plan: resolving secondary to volume depletion, hypotension, and continued use of DK-I + diuretics continue IVFs since NPO follow trend of repeat labs and UOP (2) Hypotension: Code(s): I95.9 - Hypotension, unspecified Status: Acute Assessment and Plan: due to severe hypovolemia BP has improved continue to follow hemodynamics (3) Pancreatic mass: Code(s): K86.89 - Other specified diseases of pancreas Status: Acute Assessment and Plan: as noted by CT scan of abdomen to be transferred to [facility] for further evaluation (4) SBO (small bowel obstruction): Code(s): K56.609 - Unspecified intestinal obstruction, unspecified as to partial versus complete obstruction Status: Acute Assessment and Plan: secondary to pancreatic mass etiology of severe/persistent nausea/vomiting NG tube in place Will continue to follow. Subjective Date/time seen: 08/28/19 18:55 No acute distress noted -- NG tube in place given persistent nausea/vomiting; CT of abdomen/pelvis done noting pancreatic mass; General Surgery recommending transfer to tertiary facility for further evaluation. Exam Narrative: Exam Narrative: General: WD/WN male iin NAD; NGT in place Heart: normal S1 and S2; no rub Lungs: clear to auscultation Abdomen: soft, nontender, nondistended, positive bowel sounds Extremities: no cyanosis or clubbing; no edema Skin: warm and dry Objective Data Vital Signs Vital Signs: Vital Signs Temp Pulse Resp BP Pulse Ox 08/28/19 14:00 36.7 C 89 18 130/75 93 08/28/19 08:00 37.1 C 84 18 105/51 L 94 08/28/19 04:00 36.6 C 90 22 H 120/69 95 08/28/19 00:00 36.2 C L 86 20 118/62 95 08/27/19 20:00 36.6 C 97 22 H 131/77 97 Intake/Output Intake/Output: Intake & Output 08/25/19 08/26/19 08/27/19 08/28/19 23:59 23:59 23:59 23:59 Intake Total 2100 4830 2150 Output Total 25 1550 5350 Balance 2075 3280 -3200 Meds/Results Medications: Active Medications Generic Name Dose Route Start Last Admin Trade Name Freq PRN Reason Stop Dose Admin Albuterol 2 puff 08/27/19 01:32 Proventil Hfa INHALATION Q4-6H PRN BRONCHOSPASM Aspirin 81 mg 08/27/19 09:00 08/28/19 08:49 Aspirin Ec PO 81 mg DAILY HUGO Administration Calcium Carbonate 200 mg 08/27/19 10:05 08/27/19 11:14 Tums PO 200 mg Q6H PRN Administration Indigestion Sodium Chloride 1,000 mls @ 100 mls/hr 08/27/19 22:00 08/28/19 18:28 Normal Saline Iv IV CONT 100 mls/hr .Q10H HUGO Administration Ondansetron HCl 4 mg 08/26/19 19:34 08/28/19 08:55 Zofran Inj IV PUSH 4 mg Q4H PRN Administration Nausea Pantoprazole Sodium 40 mg 08/28/19 09:00 08/28/19 08:50 Protonix Iv IV PUSH 40 mg QAM [facility] Administration Phenol 1 spray 08/28/19 14:08 08/28/19 18:24 Chloraseptic [place] MUCOUS MEM 1 spray PRN PRN Administration Sore Throat Fluticasone/Salmeterol 2 puff 08/27/19 08:00 08/28/19 08:18 Advair Hfa 45-21 Mcg (*Sp) Inhaler INHALATION Not Given Q12HRT [facility] Radiology Results: ITS Impressions Chest X-Ray 08/26/19 18:32 IMPRESSION: 1. No acute cardiopulmonary abnormality. 2. Stable cardiomegaly. Renal Ultrasound 08/28/19 10:08 IMPRESSION: 1. Sonographically unremarkable kidneys. Abdomen/Pelvis CT 08/28/19 10:16 IMPRESSION: 1. 5.4 x 5.0 x 5.2 cm spiculated mass at the tail of the pancreas with differential including pancreatic cancer, inflammatory pseudomass related to prior pancreatitis or combination thereof. This results in a high-grade obstruction of the duodenum at the level of the ligament of Treitz. 2. Distal esophageal wall thickening with surrounding inflammatory stranding suggestin
[2019-08-28 22:00] VITALS: BP 137/57; PULSE 93; RESP 16; TEMP 36.1; O2SAT 94
[2019-08-29] MEDS: SODIUM CHLORIDE 0.9% IV 1,000 ML 100 ML IV CONT (04:10)
[2019-08-29 05:52] LABS: Hematocrit 41.3 % (42.0-52.0); Hemoglobin 13.4 g/dL (14.0-18.0); Mean Corpuscular HGB Conc 32.4 g/dl (32-36); Mean Corpuscular Hemoglobin 31.2 pg (26-34); Mean Corpuscular Volume 96.3 fl (80-100); Mean Platelet Volume 12.5 fl (7.4-10.4); Platelet Count Result 135 k/mm3 (150-375); Red Blood Count 4.29 M/mm3 (4.6-6.20); Red Cell Distribution Width 12.5 % (11.5-14.5); White Blood Count 8.9 K/mm3 (4.5-10.0)
[2019-08-29 06:00] VITALS: BP 130/69; PULSE 85; RESP 18; TEMP 36.5; O2SAT 96
[2019-08-29 06:15] LABS: Alanine Aminotransferase 54 U/L (4-50); Albumin Level 3.9 g/dL (3.5-5.1); Alkaline Phosphatase 92 U/L (38-126); Aspartate Amino Transferase 35 U/L (17-59); Bilirubin,Total 0.7 mg/dL (0.2-1.3); Blood Urea Nitrogen 45 mg/dL (9-20); Carbon Dioxide 29 mmol/L (22-30); Chloride 98 mmol/L (98-107); Estimated CRCL calculation 64 ml/min; Estimated Glomerular Filt Rate 48; Glucose 82 mg/dL (75-110); Magnesium 1.9 mg/dL (1.6-2.3); Potassium 4.5 mmol/L (3.4-5.0); Sodium 143 mmol/L (137-145)
[2019-08-29] MEDS: PANTOPRAZOLE SODIUM IV 40 MG VIAL IV PUSH (08:38)
[2019-08-29 10:00] VITALS: BP 136/80; PULSE 88; RESP 20; TEMP 36.4; O2SAT 93
--- NOTE | 2019-08-29 11:20 | PM.IMPN ---
Progress Note: A&P Assessment and Plan (1) Pancreatic mass: Code(s): K86.89 - Other specified diseases of pancreas Status: Acute Assessment and Plan: Found on CT imaging. Results read as:5.4 x 5.0 x 5.2 cm spiculated mass at the tail of the pancreas with differential including pancreatic cancer, inflammatory pseudomass related to prior pancreatitis or combination thereof. This results in a high-grade obstruction of the duodenum at the level of the ligament of Treitz. General surgery recommended transfer. [facility] GI specialist has accepted patient for transfer, awaiting bed from Hospitalist service at [facility] Continue NPO and NGT low int suction Monitor (2) SBO (small bowel obstruction): Code(s): K56.609 - Unspecified intestinal obstruction, unspecified as to partial versus complete obstruction Status: Acute Assessment and Plan: Suggestive SBO found on CT imaging today related to pancreatic mass. Please see above a/p. Likey cause of vomiting. (3) Vomiting: Qualifiers: Nausea presence: with nausea Vomiting Intractability: non-intractable Vomiting type: unspecified Qualified Code(s): R11.2 - Nausea with vomiting, unspecified Code(s): R11.10 - Vomiting, unspecified Status: Acute Assessment and Plan: N/V has improved significantly since NGT. He feels his distension has improved too. Symptoms likely secondary to obstruction from pancreatic mass with SB obstruction which in turn, caused hypovolemia and CHERELLE Pleas see above a/p Continue IV pantoprazole Qam for possible added reflux esophagitis seen on CT imaging. (4) CHERELLE (acute kidney injury): Code(s): N17.9 - Acute kidney failure, unspecified Status: Acute Assessment and Plan: This appears to be resolving on labs today with Cr 1.50 today. Renal US unremarkable Continue iv fluids at 75cc per hour watch for volume overload pt has a history of CHF. continue to watch UO Nephrology consulted and appreciate input. Hold lisinopril Monitor labs (5) Acute hyponatremia: Code(s): E87.1 - Hypo-osmolality and hyponatremia Status: Acute Assessment and Plan: Resolved with Na at 143 today Monitor sodium levels continue iv hydration (6) Hypotension due to hypovolemia: Code(s): I95.89 - Other hypotension; E86.1 - Hypovolemia Status: Acute Assessment and Plan: BP 130s sys today Consider resuming bp medications once off NPO status continue iv hydration (7) Chronic congestive heart failure: Code(s): I50.9 - Heart failure, unspecified Status: Acute Assessment and Plan: Appears to be compensated hold lasix and lisinopril for now Monitor fluid status with IVF (8) Pre-diabetes: Code(s): R73.03 - Prediabetes Status: Acute Assessment and Plan: BGL 82 today Monitor daily glucose levels. Follow up with PCP (9) Dyslipidemia: Code(s): E78.5 - Hyperlipidemia, unspecified Status: Chronic Assessment and Plan: Pt not on any statins Will likely need PCP f/u (10) JUAN (obstructive sleep apnea): Code(s): G47.33 - Obstructive sleep apnea (adult) (pediatric) Status: Chronic Assessment and Plan: Continue CPAP (11) Alcohol use: Code(s): Z72.89 - Other problems related to lifestyle Status: Acute Assessment and Plan: Pt drinks alcholol daily. No acute issues at this moment or evidence of withdrawal. Monitor for signs of withdrawal Consider CIWA protocol Subjective Da
[2019-08-29] MEDS: PHENOL/SOD PHENO SPRAY CHERRY (*BKC) 1 SPRAY MUCOUS MEM (12:35)
[2019-08-29 14:00] VITALS: BP 138/66; PULSE 79; RESP 20; TEMP 36.8; O2SAT 94
[2019-08-29] MEDS: SODIUM CHLORIDE 0.9% IV 1,000 ML 75 ML IV CONT (14:57)
--- NOTE | 2019-08-29 16:34 | PM.PNNEP ---
Progress Note: A&P Assessment and Plan (1) CHERELLE (acute kidney injury): Code(s): N17.9 - Acute kidney failure, unspecified Status: Acute Assessment and Plan: resolving secondary to volume depletion, hypotension, and continued use of DK-I + diuretics continue IVFs since NPO follow trend of repeat labs and UOP (2) Hypotension: Code(s): I95.9 - Hypotension, unspecified Status: Acute Assessment and Plan: due to severe hypovolemia BP has improved continue to follow hemodynamics (3) Pancreatic mass: Code(s): K86.89 - Other specified diseases of pancreas Status: Acute Assessment and Plan: as noted by CT scan of abdomen to be transferred to [facility] for further evaluation (4) SBO (small bowel obstruction): Code(s): K56.609 - Unspecified intestinal obstruction, unspecified as to partial versus complete obstruction Status: Acute Assessment and Plan: secondary to pancreatic mass etiology of severe/persistent nausea/vomiting NG tube in place Will continue to follow. Subjective Date/time seen: 08/29/19 16:34 Still awaiting bed at [facility] for transfer; no new issues or problems overnight; renal function continues to improved as noted by labs/blood tests. Exam Narrative: Exam Narrative: General: WD/WN male iin NAD; NGT in place Heart: normal S1 and S2; no rub Lungs: clear to auscultation Abdomen: soft, nontender, nondistended, positive bowel sounds Extremities: no cyanosis or clubbing; no edema Skin: warm and intact Objective Data Vital Signs Vital Signs: Vital Signs Temp Pulse Resp BP Pulse Ox 08/29/19 14:00 36.8 C 79 20 138/66 94 08/29/19 10:00 36.4 C L 88 20 136/80 93 08/29/19 06:00 36.5 C 85 18 130/69 96 08/28/19 22:00 36.1 C L 93 16 137/57 L 94 Intake/Output Intake/Output: Intake & Output 08/26/19 08/27/19 08/28/19 08/29/19 23:59 23:59 23:59 23:59 Intake Total 2100 4830 2150 2000 Output Total 25 1550 5350 1550 Balance 2075 3280 -3200 450 Meds/Results Medications: Active Medications Generic Name Dose Route Start Last Admin Trade Name Freq PRN Reason Stop Dose Admin Albuterol 2 puff 08/27/19 01:32 Proventil Hfa INHALATION Q4-6H PRN BRONCHOSPASM Calcium Carbonate 200 mg 08/27/19 10:05 08/27/19 11:14 Tums PO 200 mg Q6H PRN Administration Indigestion Sodium Chloride 1,000 mls @ 75 mls/hr 08/27/19 22:00 08/29/19 14:57 Normal Saline Iv IV CONT 75 mls/hr .[id number] HUGO Administration Ondansetron HCl 4 mg 08/26/19 19:34 08/28/19 08:55 Zofran Inj IV PUSH 4 mg Q4H PRN Administration Nausea Pantoprazole Sodium 40 mg 08/28/19 09:00 08/29/19 08:38 Protonix Iv IV PUSH 40 mg QAM HUGO Administration Phenol 1 spray 08/28/19 14:08 08/29/19 12:35 Chloraseptic [place] MUCOUS MEM 1 spray PRN PRN Administration Sore Throat Fluticasone/Salmeterol 2 puff 08/27/19 08:00 08/29/19 09:21 Advair Hfa 45-21 Mcg (*Sp) Inhaler INHALATION Not Given Q12HRT [facility] Radiology Results: ITS Impressions Chest X-Ray 08/26/19 18:32 IMPRESSION: 1. No acute cardiopulmonary abnormality. 2. Stable cardiomegaly. Renal Ultrasound 08/28/19 10:08 IMPRESSION: 1. Sonographically unremarkable kidneys. Abdomen/Pelvis CT 08/28/19 10:16 IMPRESSION: 1. 5.4 x 5.0 x 5.2 cm spiculated mass at the tail of the pancreas with differential including pancreatic cancer, inflammatory pseudomass related to prior pancreatitis or combination thereof. This results in a high-grade obstruction of the duodenum at the level of the ligament of Treitz. 2. Distal esophageal wall thickening with surrounding inflammatory stranding suggesting reflux esophagitis. 3. Mildly prominent 12 x 9 mm left gastric lymph node which could be reactive or metastatic. 4. Moderate-sized fat-containing umbilical hernia. Abdomen X-Ray 08/28/19 14
[2019-08-29 18:00] VITALS: BP 134/68; PULSE 77; RESP 20; TEMP 36.8; O2SAT 95
[2019-08-29 21:45] VITALS: BP 125/59; PULSE 76; RESP 20; TEMP 36.6; O2SAT 98
[2019-08-30 02:00] VITALS: BP 155/87; PULSE 78; RESP 18; TEMP 36.3; O2SAT 96
[2019-08-30] MEDS: SODIUM CHLORIDE 0.9% IV 1,000 ML 75 ML IV CONT (04:10)
[2019-08-30 05:26] LABS: Hematocrit 41.7 % (42.0-52.0); Hemoglobin 13.8 g/dL (14.0-18.0); Mean Corpuscular HGB Conc 33.1 g/dl (32-36); Mean Corpuscular Hemoglobin 31.8 pg (26-34); Mean Corpuscular Volume 96.1 fl (80-100); Mean Platelet Volume 11.8 fl (7.4-10.4); Platelet Count Result 119 k/mm3 (150-375); Red Blood Count 4.34 M/mm3 (4.6-6.20); Red Cell Distribution Width 12.3 % (11.5-14.5); White Blood Count 7.8 K/mm3 (4.5-10.0)
[2019-08-30 05:44] LABS: Alanine Aminotransferase 46 U/L (4-50); Alkaline Phosphatase 91 U/L (38-126); Aspartate Amino Transferase 28 U/L (17-59); Bilirubin,Total 0.7 mg/dL (0.2-1.3); Blood Urea Nitrogen 25 mg/dL (9-20); Calcium 9.3 mg/dL (8.4-10.2); Carbon Dioxide 27 mmol/L (22-30); Chloride 103 mmol/L (98-107); Estimated CRCL calculation 94 ml/min; Estimated Glomerular Filt Rate > 60; Glucose 87 mg/dL (75-110); Magnesium 1.7 mg/dL (1.6-2.3); Potassium 4.5 mmol/L (3.4-5.0); Sodium 145 mmol/L (137-145)
[2019-08-30 06:00] VITALS: BP 148/80; PULSE 81; RESP 20; TEMP 36.6; O2SAT 99
[2019-08-30] MEDS: PANTOPRAZOLE SODIUM IV 40 MG VIAL IV PUSH (08:34)
[2019-08-30] MEDS: PHENOL/SOD PHENO SPRAY CHERRY (*BKC) 1 SPRAY MUCOUS MEM (08:34)
[2019-08-30 10:00] VITALS: BP 164/95; PULSE 90; RESP 16; TEMP 36.6; O2SAT 98
--- NOTE | 2019-08-30 10:21 | PM.IMPN ---
Progress Note: A&P Assessment and Plan (1) Pancreatic mass: Code(s): K86.89 - Other specified diseases of pancreas Status: Acute Assessment and Plan: Found on CT imaging. Results read as:5.4 x 5.0 x 5.2 cm spiculated mass at the tail of the pancreas with differential including pancreatic cancer, inflammatory pseudomass related to prior pancreatitis or combination thereof. This results in a high-grade obstruction of the duodenum at the level of the ligament of Treitz. General surgery recommended transfer. [facility] GI specialist Dr. Block has accepted patient for transfer, awaiting bed from Hospitalist service at [facility] Continue NPO and NGT low int suction Will add PPN for nutrition Monitor (2) SBO (small bowel obstruction): Code(s): K56.609 - Unspecified intestinal obstruction, unspecified as to partial versus complete obstruction Status: Acute Assessment and Plan: Suggestive SBO found on CT imaging today related to pancreatic mass. Please see above a/p. Likey cause of vomiting. (3) Vomiting: Qualifiers: Nausea presence: with nausea Vomiting Intractability: non-intractable Vomiting type: unspecified Qualified Code(s): R11.2 - Nausea with vomiting, unspecified Code(s): R11.10 - Vomiting, unspecified Status: Acute Assessment and Plan: N/V has improved significantly since NGT. He feels his distension has improved too. Symptoms likely secondary to obstruction from pancreatic mass with SB obstruction which in turn, caused hypovolemia and CHERELLE Pleas see above a/p Continue IV pantoprazole Qam for possible added reflux esophagitis seen on CT imaging. (4) CHERELLE (acute kidney injury): Code(s): N17.9 - Acute kidney failure, unspecified Status: Acute Assessment and Plan: This appears to be resolving on labs today with Cr 1.00 today. Renal US unremarkable PPN nutrition for fluids continue to watch UO Nephrology consulted and appreciate input. Hold lisinopril Monitor labs (5) Acute hyponatremia: Code(s): E87.1 - Hypo-osmolality and hyponatremia Status: Resolved Assessment and Plan: Resolved with Na at 145 today Monitor sodium levels continue iv hydration (6) Hypotension due to hypovolemia: Code(s): I95.89 - Other hypotension; E86.1 - Hypovolemia Status: Resolved Assessment and Plan: BP 140s sys today Hydralazine PRN with parameters while NPO (7) Chronic congestive heart failure: Code(s): I50.9 - Heart failure, unspecified Status: Chronic Assessment and Plan: Appears to be well compensated hold lasix and lisinopril for now while NPO Monitor fluid status with PPN (8) Pre-diabetes: Code(s): R73.03 - Prediabetes Status: Chronic Assessment and Plan: BGL 87 today Monitor PPN started today Follow up with PCP (9) Dyslipidemia: Code(s): E78.5 - Hyperlipidemia, unspecified Status: Chronic Assessment and Plan: Pt not on any statins Will likely need PCP f/u (10) JUAN (obstructive sleep apnea): Code(s): G47.33 - Obstructive sleep apnea (adult) (pediatric) Status: Chronic Assessment and Plan: Continue CPAP (11) Alcohol use: Code(s): Z72.89 - Other problems related to lifestyle Status: Chronic Assessment and Plan: Pt drinks alcholol daily. No acute issues at this moment or evidence of withdrawal. Monitor for signs of withdrawal Consider [place] protocol Subjective Date/time seen: 08/30/19 10:21 Int
[2019-08-30] MEDS: FAT EMULSIONS IV 20% 250 ML 20 ML IVPB (11:50)
[2019-08-30 12:13] LABS: Glucose Point of Care 97 (65-105)
--- NOTE | 2019-08-30 12:18 | PCNFU ---
Nutrition Follow-Up Complete: Inadequate oral intake R/T GI distress as evidence by wt loss and 89% of UBW PO intake 75% or greater with reduce GI symptoms Goal: limited progress towards goal. Pt current nutrition is NPO/PPN. Nutrition recommendation: Agree Last recorded weight is 110.8 kg. Bowel Motility:no BM reported Labs Reviewed:BUN 25,Hct 41.7,Hgb 13.8 Meds Noted:Tums,Protonix,Zofran Additional Notes: SBO found on CT imaging today related to pancreatic mass. Passing flatus. PPN starting today of Clinimix 4.25%/5% @ 80 ml/hr with 250 ml 20% Lipids providing patient with 1153 kcals and 82 gms of protein. This is meeting 42% of patients caloric needs. Plans for transfer to [facility] for further care. Monitoring: po intake,diet, wt, labs every three days
[2019-08-30 14:00] VITALS: BP 174/86; PULSE 95; RESP 16; TEMP 37; O2SAT 93
[2019-08-30 18:00] VITALS: BP 170/104; PULSE 80; RESP 15; TEMP 36.9; O2SAT 97
[2019-08-30] MEDS: hydrALAZINE HCL 20 MG/ML VIAL 10 MG IV PUSH (18:09)
[2019-08-30 18:22] LABS: Glucose Point of Care 132 (65-105)
--- NOTE | 2019-08-30 19:18 | PC.NURSE ---
Per Dr. Meyers, it is OK to clamp NG and hold PPN while transporting to [facility]. Patient to be transported to [facility] room 719 bed 2.
[2019-08-30 20:20] VITALS: BP 169/85; PULSE 91; RESP 20; TEMP 36.3; O2SAT 98
--- NOTE | 2019-08-31 06:49 | PM.TDS ---
Transfer Discharge Sum: Prov Provider Date of admission: 08/26/19 19:35 Date of transfer: 08/30/19 at roughly 20:[address] Block GI specialist on as consult; transfer to [facility] hospitalist service as primary service Primary care physician: China Cervantes MD Admitting clinician: Mejia Antonio MD Consults: 08/26/19 19:38 Consult to Physician Routine Comment: Consulting Provider: Miguelito Santana Reason for consultation: CHERELLE Has provider been notified: Yes 08/30/19 10:15 Consult to Dietitian Routine Reason for Consult:: TPN DS: Diagnosis Admitting Diagnosis Admitting Diagnosis: Nausea with vomiting, unspecified Discharge Diagnosis (1) Pancreatic mass: Code(s): K86.89 - Other specified diseases of pancreas Status: Acute Assessment and Plan: Found on CT imaging during stay. Results read as: 5.4 x 5.0 x 5.2 cm spiculated mass at the tail of the pancreas with differential including pancreatic cancer, inflammatory pseudomass related to prior pancreatitis or combination thereof. This results in a high-grade obstruction of the duodenum at the level of the ligament of Treitz. General surgery recommended transfer. [facility] GI specialist Dr. Block has accepted patient for transfer, awaiting bed from Hospitalist service at [facility] Continue NPO and NGT low int suction Will add PPN for nutrition Monitor (2) SBO (small bowel obstruction): Code(s): K56.609 - Unspecified intestinal obstruction, unspecified as to partial versus complete obstruction Status: Acute Assessment and Plan: Suggestive SBO found on CT imaging today related to pancreatic mass. Please see above a/p. Likey cause of vomiting. (3) Vomiting: Qualifiers: Nausea presence: with nausea Vomiting Intractability: non-intractable Vomiting type: unspecified Qualified Code(s): R11.2 - Nausea with vomiting, unspecified Code(s): R11.10 - Vomiting, unspecified Status: Acute Assessment and Plan: N/V has improved significantly since NGT. He feels his distension has improved too. Symptoms likely secondary to obstruction from pancreatic mass with SB obstruction which in turn, caused hypovolemia and CHERELLE Pleas see above a/p Continue IV pantoprazole Qam for possible added reflux esophagitis seen on CT imaging. (4) CHERELLE (acute kidney injury): Code(s): N17.9 - Acute kidney failure, unspecified Status: Acute Assessment and Plan: This appears to be resolving on labs today with Cr 1.00 today. Renal US unremarkable PPN nutrition for fluids continue to watch [facility] Nephrology consulted and appreciate input. Hold lisinopril Monitor labs (5) Acute hyponatremia: Code(s): E87.1 - Hypo-osmolality and hyponatremia Status: Resolved Assessment and Plan: Resolved with Na at 145 today Monitor sodium levels continue iv hydration (6) Hypotension due to hypovolemia: Code(s): I95.89 - Other hypotension; E86.1 - Hypovolemia Status: Resolved Assessment and Plan: BP 140s sys today Hydralazine PRN with parameters while NPO (7) Chronic congestive heart failure: Code(s): I50.9 - Heart failure, unspecified Status: Chronic Assessment and Plan: Appears to be well compensated hold lasix and lisinopril for now while NPO Monitor fluid status with PPN (8) Pre-diabetes: Code(s): R73.03 - Prediabetes Status: Chronic Assessment and Plan: BGL 87 today Monitor PPN started today Follow up with PCP (9) Dyslipidemia: Code(s): E78.5 - Hyperlipidemia, unspecified Status: Chronic Assessment
== END 2019-08-30 20:35 | disposition short-term general hospital (02) | DRG 282 ==
LOC: ANHED 19:34 → ANH2MED 23:41
PROVIDERS: Family Medicine; Internal Medicine Nephrology; Admitting Provider Internal Medicine; Emergency Provider Emergency Medicine; PCP Family Medicine; Visit Provider Physician Assistant
DX: K86.89 Other specified diseases of pancreas (principal); K56.699 Other intestinal obstruction unspecified as to partial versus complete obstruction; N17.0 Acute kidney failure with tubular necrosis; E87.1 Hypo-osmolality and hyponatremia; I95.89 Other hypotension; E86.1 Hypovolemia; I50.9 Heart failure, unspecified; R73.03 Prediabetes; E78.5 Hyperlipidemia, unspecified; G47.33 Obstructive sleep apnea (adult) (pediatric); K21.9 Gastro-esophageal reflux disease without esophagitis; D72.829 Elevated white blood cell count, unspecified; I25.10 Atherosclerotic heart disease of native coronary artery without angina pectoris; K42.9 Umbilical hernia without obstruction or gangrene; F17.210 Nicotine dependence, cigarettes, uncomplicated; Z28.21 Immunization not carried out because of patient refusal; Z72.89 Other problems related to lifestyle; E66.9 Obesity, unspecified; Z68.33 Body mass index [BMI] 33.0-33.9, adult; I95.9 Hypotension, unspecified
CPT/HCPCS: 36415; 51701; 71045; 74018; 74176; 76775; 80048; 80053; 81001; 81050; 82550; 82570; 83605; 83735; 84156; 84300; 84550; 85025; 85027; 85610; 85730; 86140; 87040; 87086; 93005; 96374; 96375; 99291; A9270; C9113; J0131; J0360; J2405; J7030; J7040; J7120

== ENCOUNTER 2021-10-27 03:24 | Emergency (ER) | payer MEDICARE, MEDICAID, SELFPAY ==
--- NOTE | ~2021-10-27 | XR_ITS ---
EXAMINATION: XR chest 1V portable INDICATION: Shortness of breath, history of pancreatic cancer TECHNIQUE: Portable AP chest at 0415 hours COMPARISON: 08/26/2019 FINDINGS: There is a small right pleural effusion. Minimal airspace opacities are present in the righ t lung base. The cardiomediastinal silhouette is normal. A right internal jugular Port-A-Cath ends wi th its tip in the proximal right atrium. IMPRESSION: 1. Small right pleural effusion. 2. Right basilar airspace opacity, consistent with atelectasis versus pneumonia. Reviewed, dictated and finalized at location A. IMPRESSION: 1. Small right pleural effusion. 2. Right basilar airspace opacity, consistent with atelectasis versus pneumonia .
[2021-10-27 03:24] VITALS: BP 65/36; PULSE 80; PULSE 82; RESP 18; TEMP 36.3; O2SAT 100
--- NOTE | 2021-10-27 03:42 | PC.NURSE ---
Pt arrives with D10 and NS running to gravity from EMS. VORB received from Nadine Davis to continue running fluids. One amp of D50 administered due to pt blood glucose of 22 on arrival.
[2021-10-27] MEDS: DEXTROSE 50% 25 GM/50 ML SYRINGE IV PUSH (03:43)
[2021-10-27] MEDS: SODIUM CHLORIDE 0.9% IV 1,000 ML 999 ML IV CONT (03:43)
[2021-10-27 03:57] LABS: Glucose Point of Care > 500 mg/dl (65-105)
[2021-10-27 03:57] LABS: Glucose Point of Care 22 mg/dl (65-105)
--- NOTE | 2021-10-27 04:02 | PC.NURSE ---
After D50 administration pt blood sugar found to be >500. VORB received from Dr. Mejia to discontinue D10 infusion and cancel EKG order.
[2021-10-27 04:05] VITALS: BP 75/50; PULSE 81; RESP 22; O2SAT 100
--- NOTE | 2021-10-27 04:22 | ED.WEAKNESS ---
HPI - Weakness General Chief complaint: Weakness Stated complaint: SOB, WEAKNESS Time Seen by Provider: 10/27/21 03:28 Source: patient, family and EMS Mode of arrival: EMS Limitations: no limitations History of Present Illness HPI Narrative: 61-year-old male presents emergency room by EMS secondary to extreme weakness. Patient has got advanced a pancreatic cancer. He underwent surgical procedure for his pancreatic cancer and chemotherapy. He had not had any treatment since last fall. He decided he would not go to continue treatment any longer. Has been at home with his . He has gotten to the point where his status is rapidly deteriorated to the point that he has not had hardly anything to eat or drink for the last day or so. He was noted to be extremely lethargic so they called 911 and had him brought to the emergency room. Paramedics started an IV prehospital and patient was noted to be hypoglycemic and subsequently started an IV of D10. After arrival to the emergency room the patient's parents as well as his arrived. Patient voices that he does not want to be on life support or any resuscitation and the family is in support of this. I had an open and honest discussion with them about the fact that Kevin is now at the end-stage of life with advanced pancreatic cancer. They were receptive to this. I had a discussion with them about having hospice come and have him at home with home hospice so that he could with dignity at home with his family there. Apparently this has been brought to him before and he did not want that but now he is considering it. Related Data Home Medications Medication Instructions Recorded Confirmed acetaminophen 325 mg PO ONCE PRN 10/27/21 10/27/21 albuterol mcg INHALATION 10/27/21 aspirin 81 mg PO DAILY 10/27/21 10/27/21 atorvastatin 40 mg PO HS 10/27/21 10/27/21 carvedilol 10/27/21 cetirizine [Zyrtec] 10 mg PO DAILY PRN 10/27/21 10/27/21 docusate sodium 10/27/21 escitalopram oxalate mg 10/27/21 fluticasone propion-salmeterol 1 inh INHALATION Q12H 10/27/21 10/27/21 lisinopril 40 mg PO DAILY 10/27/21 10/27/21 lorazepam 0.5 mg PO TID PRN 10/27/21 10/27/21 metformin 500 mg PO DAILY 10/27/21 10/27/21 metoclopramide HCl 10/27/21 omeprazole 10 mg PO DAILY 10/27/21 10/27/21 prochlorperazine maleate 10 mg PO Q6H PRN 10/27/21 10/27/21 [Compazine] Allergies Allergy/AdvReac Type Severity Reaction Status Date / Time No Known Allergies Allergy Verified 10/27/21 05:10 Review of Systems Review of Systems: CONSTITUTIONAL: Denies fever, chills, or sweats. EYES: Denies visual changes, redness, or discharge. ENT: Denies rhinorrhea, congestion, sore throat, or otalgia. CARDIOVASCULAR: Denies chest pain, palpitations, or edema. RESPIRATORY: Complaining of being short of breath with some pain around his left scapula GASTROINTESTINAL: Denies abdominal pain, nausea, vomiting, or diarrhea. GENITOURINARY: Denies dysuria or hematuria. SKIN: Denies rash or itching. MUSCULOSKELETAL: Denies back pain, joint pain, or myalgia. NEUROLOGIC: Denies headache, numbness, or weakness. PSYCHIATRIC: Denies anxiety or depression. [facility] Past Medical History Medical History (Updated 10/27/21 @ 05:28 by Tahir Mejia DO) Pancreatic cancer Exam Narrative: APPEARANCE: Patient is very ill-appearing. He noted to be lethargic. Head normocephalic and atraumatic. EYES: PERRLA/EOMI, conjunctivae very clear. NOSE: Normal with no drainage EARS:TMS clear Aris Wagner, with good light reflex. THROAT: Pharynx clear, no exudate. NECK: Supple. No adenopathy, no masses. RESPIRATORY: Airway patent, respirations nonlabored. Clear to auscultation bilaterally, no rales, rhonchi, wheezing. CARDIOVASCULAR: Regular rate and rhythm without murmurs, rubs, or gallops. ABDOMINAL: Distended abdomen with some tenderness to the mid abdominal region. A lot of excoriations and some skin breakdown around his umbilicus Musculoskeletal:
[2021-10-27 04:26] LABS: Hematocrit 35.3 % (42.0-52.0); Hemoglobin 11.9 g/dL (14.0-18.0); Mean Corpuscular HGB Conc 33.7 g/dl (32-36); Mean Corpuscular Hemoglobin 32.4 pg (26-34); Mean Corpuscular Volume 96.2 fl (80-100); Platelet Count Result 88 k/mm3 (150-375); Red Blood Count 3.67 M/mm3 (4.6-6.20); White Blood Count 19.3 K/mm3 (4.5-10.0)
[2021-10-27 04:36] LABS: Alanine Aminotransferase 14 U/L (4-50); Albumin Level 1.6 g/dL (3.5-5.1); Alkaline Phosphatase 80 U/L (38-126); Anion Gap 10 mmol/L (8-16); Aspartate Amino Transferase 30 U/L (17-59); Bilirubin,Total 0.9 mg/dL (0.2-1.3); Blood Urea Nitrogen 68 mg/dL (9-20); Calcium 6.3 mg/dL (8.4-10.2); Carbon Dioxide 15 mmol/L (22-30); Chloride 106 mmol/L (98-107); Estimated CRCL calculation 19 ml/min; Estimated Glomerular Filt Rate 15; Glucose 293 mg/dL (65-110); Lipase 12 U/L (23-300); Potassium 2.9 mmol/L (3.4-5.0); Sodium 131 mmol/L (137-145)
[2021-10-27 04:47] LABS: Band Neutrophils Percent 8 % (0-6); Burr Cells 2+ (NORMAL); Eosinophils Absolute Manual 0.19 K/mm3 (0.02-0.5); Eosinophils Percent Manual 1 % (0-4); Large Platelets Present; Lymphocytes Absolute Manual 0.96 K/mm3 (1.1-4.5); Neutrophils Absolute Manual 18.14 K/mm3 (1.3-6.7); Neutrophils Percent Manual 86 % (46-73); Platelet Estimate Decreased (Adequate); Total Cells Counted 100
--- NOTE | 2021-10-27 05:01 | PC.NURSE ---
Dr. Mejia had another discussion with pt and family and they have now agreed that it is best for the pt to be on hospice care. They wish for this care to take place at the pt parents house.
[2021-10-27 06:21] VITALS: BP 92/57; PULSE 78; RESP 18; O2SAT 96
== END 2021-10-27 07:03 | disposition hospice, home (50) ==
PROVIDERS: Emergency Provider Emergency Medicine; PCP Family Medicine
DX: C25.9 Malignant neoplasm of pancreas, unspecified (principal); N17.9 Acute kidney failure, unspecified; E16.2 Hypoglycemia, unspecified; E86.0 Dehydration
CPT/HCPCS: 36415; 71045; 80053; 82948; 83690; 85025; 96361; 96374; 99284; J7030